=== PATIENT | female | born 1995 | race African-American/Black ===

== ENCOUNTER 2023-07-25 12:09 | Emergency (ER) | payer OTHER ==
[2023-07-25 12:58] LABS: BASOPHILS % (AUTO) 0.8 %; EOSINOPHILS # (AUTO) 0.1 10^3/uL (0.0-0.7); EOSINOPHILS % (AUTO) 1.4 %; HCT - HEMATOCRIT 40.6 % (37.0-47.0); HGB - HEMOGLOBIN 11.6 g/dL (12.0-16.0); LYMPHOCYTES # (AUTO) 1.3 10^3/uL (1.5-3.5); LYMPHOCYTES % (AUTO) 26.1 %; MEAN CORPUSCULAR HEMOGLOBIN 22.1 pg (27.0-31.0); MEAN CORPUSCULAR HGB CONC 28.6 g/dL (32.0-36.0); MEAN CORPUSCULAR VOLUME 77.2 fL (81.0-99.0); MEAN PLATELET VOLUME 11.2 fL (7.9-10.8); MONOCYTES # (AUTO) 0.5 10^3/uL (0.0-1.0); MONOCYTES % (AUTO) 10.4 %; NEUTROPHILS % (AUTO) 60.9 %; PLT - PLATELET COUNT 260 10^3/uL (130-450); RED BLOOD COUNT 5.26 10^6/uL (4.20-5.40); RED CELL DISTRIBUTION WIDTH 13.8 % (12.0-15.0)
[2023-07-25 13:02] LABS: SLIDE REVIEW? Indicated
[2023-07-25 13:12] LABS: ALBUMIN 4.6 g/dL (3.2-5.5); ALBUMIN/GLOBULIN RATIO 1.6 (1.0-2.2); ALKALINE PHOSPHATASE 50 IU/L (42-121); ALT ALANINE AMINOTRANSFERASE 16 IU/L (10-60); AST ASPARTATE AMINOTRANSFERASE 16 IU/L (10-42); BILIRUBIN,TOTAL 0.6 mg/dL (0.2-1.0); BUN - BLOOD UREA NITROGEN 17 mg/dL (6-20); CALCIUM 9.5 mg/dL (8.5-10.3); CARBON DIOXIDE - CO2 29 mmol/L (21-32); CHLORIDE 100 mmol/L (101-111); CREATININE 0.8 mg/dL (0.6-1.3); GFR - MDRD 104 (>89); GLUCOSE 164 mg/dL (74-104); LIPASE 31 U/L (11-82); POTASSIUM 3.7 mmol/L (3.5-4.5); SODIUM 135 mmol/L (135-145); TOTAL PROTEIN 7.5 g/dL (6.4-8.9)
[2023-07-25 13:18] LABS: TROPONIN I HIGH SENSITIVITY < 2.3 ng/L (2.3-14.8)
[2023-07-25 13:20] LABS: PLATELET ESTIMATE, MANUAL NORMAL (130-450,000) (NORMAL); PLATELET MORPHOLOGY NORMAL APPEARANCE (NORMAL); RBC MORPHOLOGY (MULTIPLE) NORMAL APPEARANCE (NORMAL)
--- NOTE | 2023-07-25 13:30 | XRAY Report ---
PROCEDURE: Chest 1V INDICATIONS: Chest pain TECHNIQUE: One view of the chest was acquired. COMPARISON: None. FINDINGS: Surgical changes and devices: None. Lungs and pleura: No dense consolidation or pleural effusion. Mediastinum: Normal heart size Bones and chest wall: No suspicious bony lesions. Overlying soft tissues appear unremarkable. IMPRESSION: No acute radiographic abnormality on this single view study. Reviewed by: Lito Sweeney MD on 07/25/2023 1:28 PM PDT Approved by: Lito Sweeney MD on 07/25/2023 1:28 PM PDT Station ID: [id number]
--- NOTE | 2023-07-25 13:45 | ED Physician Documentation ---
PD HPI CHEST PAIN - Stated complaint Stated Complaint: CP/NAUSEA/HEAD PX - Chief complaint Chief Complaint: Cardiac - Additional information Additional information: 27-year-old female with no pertinent past medical history presents emergency department for midepigastric pain. Patient said this started about 11 days ago she noticed that it gets significantly more worse at nighttime when she sleeping or laying down flat and gets somewhat better throughout the day. Patient also says that sometimes she has been noticing some intermittent difficulty breathing with over physical exertion but she also says that she is more stuffy the last few days with congestion, rhinorrhea. She said no fevers or chills no nausea or vomiting. Patient says that she does have a history of acid reflux is not taking any medications for this and says that this does feel very similar to acid reflux in the past. 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 : None HEENT: None Musculoskeletal: None Derm: None - Past Surgical History Past Surgical History: No - Present Medications Home Medications: Ambulatory Orders Medication Instructions Recorded Confirmed Famotidine [Acid-Pep] 20 mg PO DAILY #20 tablet 07/25/23 - Allergies Allergies/Adverse Reactions: Allergies Allergy/AdvReac Type Severity Reaction Status Date / Time No Known Drug Allergies Allergy Verified 07/25/23 12:24 - Social History Does the pt smoke?: No Smoking Status: Never smoker Does the pt drink ETOH?: Yes Does the pt have substance abuse?: No - Immunizations Immunizations are current?: Yes PD ED PE NORMAL - Vitals Vital signs reviewed: Yes - General General: Alert and oriented X 3, No acute distress, Well developed/nourished - HEENT HEENT: Atraumatic - Neck Neck: Supple, no meningeal sign - Cardiac Cardiac: RRR, No murmur, No gallop, Strong equal pulses - Respiratory Respiratory: No respiratory distress, Clear bilaterally - Abdomen Abdomen: Normal bowel sounds, Soft, Non tender, No organomegaly - Extremities Extremities: No edema - Neuro Neuro: Alert and oriented X 3, music library assistant 2-12 intact, No motor deficit, No sensory deficit, Normal speech - Psych Psych: Normal mood, Normal affect Results - Vitals Vitals: Vital Signs - 24 hr 07/25/23 07/25/23 12:26 14:33 Temperature 36.5 C Heart Rate 65 56 L Respiratory 18 18 Rate Blood Pressure 127/80 128/86 H O2 Saturation 100 99 Oxygen O2 Source Room air - EKG (time done) 1236 EKG releavant findings:: EKG personally interpreted by author of this note. Relevant findings are: Rate: Rate (enter#) (59) Rhythm: NSR [place]: Normal Intervals: Normal [place] QRS: Normal Ischemia: Normal ST segments Computer interpretation: Agree with computer - Labs Labs: Laboratory Tests 07/25/23 07/25/23 12:53 12:53 WBC 5.0 RBC 5.26 Hgb 11.6 L Hct 40.6 MCV 77.2 L MCH 22.1 L MCHC 28.6 L RDW 13.8 Plt Count 260 MPV 11.2 H Neut # (Auto) 3.0 Lymph # (Auto) 1.3 L [place] # (Auto) 0.5 Eos # (Auto) 0.1 Baso # (Auto) 0.0 Absolute Nucleated RBC 0.00 Nucleated RBC % 0.0 Manual Slide Review Indicated Platelet Estimate NORMAL (130-450,000) Platelet Morphology NORMAL APPEARANCE RBC Morph Micro Appear NORMAL APPEARANCE Sodium 135 Potassium 3.7 Chloride 100 L Carbon Dioxide 29 Anion Gap 6.0 BUN 17 Creatinine 0.8 Estimated GFR (MDRD) 104 Glucose 164 H Calcium 9.5 Total Bilirubin 0.6 AST 16 ALT 16 Alkaline Phosphatase 50 Troponin I High Sens < 2.3 L Total Protein 7.5 Albumin 4.6 Globulin 2.9 Albumin/Globulin Ratio 1.6 Lipase 31 - Rads (name of study) Chest x-ray Relevant Findings:: Final report received, EMP independent interpretation of test, Other (No acute cardiopulmonary abnormalities) PD Medical Decision Making - ED course ED course: 27 yo female here for mid-epigastric pain. Exam without evidence of volume overload so doubt heart failure. EKG without signs of active ischemia. Given the timing of pain to ER presentation, single troponin was negative so doubt NSTEMI. Presentation not consistent with acute PE (PERC negative),pneumothorax (not visualized on chest xr), thoracic aortic dissection, pericarditis, tamponade, pneumonia (no infectious symptoms, clear chest xr), myocarditis (no recent illness, neg trop). HEART score:0, so plan to discharge patient home with PCO follow up and famotidine prescription for presumed Acid reflux. Departure - Departure Disposition: Home, Self Care Clinical Impression: GERD (gastroesophageal reflux disease) Qualifiers: Esophagitis presence: without esophagitis Qualified Code(s): K21.9 - Gastro- esophageal reflux disease without esophagitis Instructions: Antacids, ED GERD Prescriptions: Famotidine [Acid-Pep] 20 mg PO DAILY #20 tablet Comments: Thank you for trusting us with your care. As we discussed I believe that your symptoms are due to acid reflux. We have completed an EKG, labs, chest x-ray and all are not showing anything emergent concerning for possible heart attack. We have given you a GI cocktail here to see if this would help with your midepigastric pain as well as started you on an antacid medication called famotidine. If you are noticing some alleviation with the symptoms I would strongly encourage you to follow-up with your primary care provider for refill. Your labs do reveal some possible mild anemia this is something you can have worked up by your primary care provider for further evaluation nothing emergent needs to be done on our end for this. Please come back to the emergency department for chest pain is getting any worse despite the acid reducing methods we discussed or any other concerning symptoms. Forms: PCP List Discharge Date/Time: 07/25/23 14:33
[2023-07-25] MEDS: MAG HYDROX/AL HYDROX/SIMETH 30 ML UDC PO STA (14:22)
[2023-07-25] MEDS: FAMOTIDINE 20 MG TABLET PO STA (14:22)
[2023-07-25] MEDS: LIDOCAINE VISCOUS 2% 15 ML ORAL SYRINGE MM STA (14:22)
[2023-07-25 14:41] VITALS: BP 128/86; O2SAT 99
== END 2023-07-25 14:33 | disposition home or self-care (01) ==
LOC: ED 12:09 → SUPCPDRO 12:09 → ED 14:33
DX: K21.9 Gastro-esophageal reflux disease without esophagitis (principal)
CPT/HCPCS: 36415; 71045; 80053; 83690; 84484; 85025; 93005; 99284; A9270

== ENCOUNTER 2023-11-27 13:18 | Day surgery (SDC) | payer OTHER ==
--- NOTE | 2023-11-27 14:19 | XRAY Report ---
PROCEDURE: Tib/Fib RT INDICATIONS: Trauma TECHNIQUE: 2 views of the tibia and fibula were acquired. COMPARISON: None. FINDINGS: Bones: Nondisplaced, transverse fracture of the tibia midshaft No suspicious bony lesions. Soft tissues: No suspicious soft tissue calcifications or masses. IMPRESSION: Nondisplaced mid tibia fracture. Reviewed by: Valerie Rosenthal MD, PhD on 11/27/2023 2:18 PM PDT Approved by: Valerie Rosenthal MD, PhD on 11/27/2023 2:18 PM PDT Station ID: [id number]
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
[2023-11-27 16:29] LABS: BASOPHILS % (AUTO) 0.3 %; EOSINOPHILS % (AUTO) 0.2 %; HCT - HEMATOCRIT 33.6 % (37.0-47.0); HGB - HEMOGLOBIN 10.1 g/dL (12.0-16.0); LYMPHOCYTES # (AUTO) 1.7 10^3/uL (1.5-3.5); LYMPHOCYTES % (AUTO) 29.4 %; MEAN CORPUSCULAR HEMOGLOBIN 22.5 pg (27.0-31.0); MEAN CORPUSCULAR HGB CONC 30.1 g/dL (32.0-36.0); MEAN PLATELET VOLUME 11.2 fL (7.9-10.8); MONOCYTES # (AUTO) 0.5 10^3/uL (0.0-1.0); MONOCYTES % (AUTO) 8.9 %; NEUTROPHILS # (AUTO) 3.5 10^3/uL (1.5-6.6); NEUTROPHILS % (AUTO) 60.5 %; PLT - PLATELET COUNT 281 10^3/uL (130-450); RED BLOOD COUNT 4.48 10^6/uL (4.20-5.40); RED CELL DISTRIBUTION WIDTH 13.6 % (12.0-15.0); WHITE BLOOD COUNT 5.8 x10^3/uL (4.8-10.8)
[2023-11-27] MEDS: HYDROmorphone 1 MG/ML CARPUJECT IVP STA ×2 (16:30→17:29)
[2023-11-27 16:46] LABS: ALBUMIN/GLOBULIN RATIO 1.3 (1.0-2.2); ALKALINE PHOSPHATASE 35 IU/L (42-121); ALT ALANINE AMINOTRANSFERASE 14 IU/L (10-60); AST ASPARTATE AMINOTRANSFERASE 19 IU/L (10-42); BILIRUBIN,TOTAL 0.6 mg/dL (0.2-1.0); BUN - BLOOD UREA NITROGEN 15 mg/dL (6-20); CALCIUM 9.3 mg/dL (8.5-10.3); CARBON DIOXIDE - CO2 25 mmol/L (21-32); CHLORIDE 104 mmol/L (101-111); CREATININE 0.7 mg/dL (0.6-1.3); GFR - MDRD 121 (>89); GLUCOSE 143 mg/dL (74-104); POTASSIUM 3.6 mmol/L (3.5-4.5); SODIUM 137 mmol/L (135-145); TOTAL PROTEIN 7.2 g/dL (6.4-8.9)
[2023-11-27 16:51] LABS: HCG,QUALITATIVE BLOOD NEGATIVE
[2023-11-27] MEDS: oxyCODONE 5 MG TABLET PO STA (16:51)
[2023-11-27] MEDS: ceFAZolin 2 GM VIAL IVP STA (16:57)
[2023-11-27 17:14] LABS: INR 1.3 (0.8-1.2); PT - PROTHROMBIN TIME 13.7 secs (9.9-12.6)
[2023-11-27] MEDS: KETOROLAC 15 MG/ML VIAL IVP STA (17:29)
--- NOTE | 2023-11-27 18:46 | ANESTHESIA ---
Pre-Anesthesia VS, & Labs - Diagnosis right lower leg injury - Procedure washout of right lower leg injury Vital Signs: Temp Pulse Resp BP Pulse Ox O2 Flow Rate 36.5 C 51 L 16 127/94 H 100 11/27/23 13:26 11/27/23 18:00 11/27/23 18:00 11/27/23 18:00 11/27/23 18:00 Height: 5 ft 7 in Weight (kg): 61.235 kg Body Mass Index: 21.1 BMI Classification: Normal - NPO Last Fluid Intake: 1600 Last Food Intake: >8hours - Is Patient ?: No (pt denies ; in a same sex marriage; declines upt; will sign a waiver) - Lab Results Current Lab Results: Laboratory Tests 11/27/23 16:26: PT 13.7 H, INR 1.3 H 11/27/23 16:26: WBC 5.8, RBC 4.48, Hgb 10.1 L, Hct 33.6 L, MCV 75.0 L, MCH 22.5 L, MCHC 30.1 L, RDW 13.6, Plt Count 281, MPV 11.2 H, Neut # (Auto) 3.5, Lymph # (Auto) 1.7, [place] # (Auto) 0.5, Eos # (Auto) 0.0, Baso # (Auto) 0.0, Absolute Nucleated RBC 0.00, Nucleated RBC % 0.0 11/27/23 16:26: Sodium 137, Potassium 3.6, Chloride 104, Carbon Dioxide 25, Anion Gap 8.0, BUN 15, Creatinine 0.7, Estimated GFR (MDRD) 121, Glucose 143 H, Calcium 9.3, Total Bilirubin 0.6, AST 19, ALT 14, Alkaline Phosphatase 35 L, Total Protein 7.2, Albumin 4.0, Globulin 3.2, Albumin/Globulin Ratio 1.3, Serum HCG, Qual NEGATIVE Lab results reviewed: Yes Fish Bones: 11/27/23 16:26 11/27/23 16:26 Home Medications and Allergies Allergies/Adverse Reactions: Allergies Allergy/AdvReac Type Severity Reaction Status Date / Time No Known Drug Allergies Allergy Verified 11/27/23 13:37 Anes History & Medical History - Anesthetic History Anesthesia Complications: reports: No previous complications (no previous anesthetics) Family history of Anesthesia Complications: Denies - Medical History Cardiovascular: reports: None Pulmonary: reports: None Gastrointestinal: reports: GERD (takes medication, reports it is well cont rolled, does not currently have reflux; does not need to sleep elevated on pillows) Urinary: reports: None Neuro: reports: None, Migraines Musculoskeletal: reports: None Endocrine/Autoimmune: reports: None Blood Disorders: reports: Anemia Skin: reports: None Smoking Status: Never smoker Psychosocial: reports: No issues indicated Exam General: Alert, Cooperative Dental: WNL Mouth Openin Fingerbreadth Neck Mobility: Normal Mallampati classification: II Thyromental Distance: 4-6 cm Respiratory: Lungs clear Cardiovascular: Regular rate Plan Anesthesia Type: General Consent for Procedure(s) Verified and Reviewed: Yes Code Status: Attempt Resuscitation ASA classification: 2-Mild systemic disease Is this case an emergency?: Yes
[2023-11-27] MEDS ORDERED: ePHEDrine 50 MG/ML VIAL IVP PRN (18:47)
[2023-11-27] MEDS ORDERED: fentaNYL 100 MCG/2 ML VIAL IVP PRN (18:47)
[2023-11-27] MEDS ORDERED: NALOXONE 0.4 MG/ML VIAL IVP PRN (18:47)
[2023-11-27] MEDS ORDERED: ONDANSETRON 4 MG/2 ML VIAL IVP PRN ×2 (18:47→20:32)
[2023-11-27] MEDS ORDERED: ATROPINE ABBOJECT 1 MG/10 ML SYRINGE IVP PRN (18:47)
[2023-11-27] MEDS ORDERED: METOCLOPRAMIDE 10 MG/2 ML VIAL IVP PRN (18:47)
[2023-11-27] MEDS ORDERED: MORPHINE 2 MG/ML CARPUJECT IVP PRN (18:47)
[2023-11-27] MEDS ORDERED: HYDROmorphone 0.5 MG/0.5 ML SYRINGE IVP PRN (18:47)
[2023-11-27] MEDS ORDERED: LACTATED RINGERS 1,000 ML IV SCH (19:00)
[2023-11-27] MEDS ORDERED: fentaNYL 100 MCG/2 ML VIAL ONE (19:12)
[2023-11-27] MEDS ORDERED: PROPOFOL 200 MG/20 ML VIAL IVP ONE (19:12)
[2023-11-27] MEDS ORDERED: LIDOCAINE-PF 2% 10 ML AMP SUBQ ONE (19:12)
[2023-11-27] MEDS ORDERED: MIDAZOLAM 2 MG/2 ML VIAL ONE (19:12)
[2023-11-27] MEDS ORDERED: BUPIVACAINE 0.5%-EPI 1:200000 PF 10 ML VIAL ONE (19:48)
[2023-11-27] MEDS: BUPIVACAINE 0.5%-EPI 1:200000 PF 30 ML VIAL SUBQ ONE ×2 (19:59)
[2023-11-27] MEDS: LACTATED RINGERS 1,000 ML IV ONE (20:25)
[2023-11-27] MEDS ORDERED: ONDANSETRON 4 MG/2 ML VIAL ONE (20:27)
[2023-11-27] MEDS ORDERED: DEXAMETHASONE 4 MG/ML VIAL ONE (20:27)
[2023-11-27] MEDS ORDERED: HYDROcod/ACETAM 10 MG/325 MG TABLET PO PRN (20:32)
[2023-11-27] MEDS ORDERED: oxyCODONE 5 MG TABLET PO PRN (20:32)
--- NOTE | 2023-11-27 20:49 | OPERATIVE REPORT ---
Operative Report - General Procedure Date: 11/27/23 Planned Procedure: Irrigation and debridement of open right midshaft tibia fracture Pre-Op Diagnosis: Grade 1 open right midshaft tibia fracture Procedure Performed: Irrigation and debridement of grade 1 open right midshaft tibia fracture Post Op Diagnosis: Same - Procedure Note Primary Surgeon: Margi Cintron MD Anesthesia Provider: Elham Arreola CRNA Anesthesia Technique: General LMA IV Fluids (mL): 600 Estimated Blood Loss (mL): 10 Complications: None - Other Other Information/Narrative: Description of procedure: Patient was taken the operating room from the emergency room where she was placed under general anesthetic in the supine position. We then scrubbed the wound with Betadine solution and scrub brush. We then prepped and draped the leg free in usual fashion. We then sharply did incised the wound edges with a #15 blade and pickups. We then copiously irrigated the wound with a total of 2000 mL of normal saline. We probed the wound and found no direct communication to the tibia fracture. The periosteum of the exposed tibia shaft appeared to be intact. We then closed the wound loosely with interrupted horizontal mattress stitches of 3-0 nylon. We then washed the wound and dressed it with Xeroform gauze 4 x 4's Kerlix and sterile Webril. Patient was then placed in a long-leg posterior fiberglass splint. Patient then transported from the operating room to recovery room in satisfactory condition. Estimated blood loss: 10 mL Replacement: 600 mL crystalloid Plan: Patient be discharged home recovered. Will give an prescription for oxycodone for pain medication and a 7-day course of Keflex 500 mg p.o. 4 times daily. Will follow-up in orthopedic clinic in about 5 to 7 days for wound check and probably an application of a short long-leg cast.
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
[2023-11-27 22:37] VITALS: BP 137/94; O2SAT 98
[2023-11-27] MEDS: HYDROcod/ACETAM 5/325 MG TABLET PO PRN (22:46)
== END 2023-11-27 23:32 | disposition home or self-care (01) ==
LOC: ED 13:18 → SDS 19:20 → ICU 20:37 → SDS 23:32
PROVIDERS: ATTEND Orthopaedic Surgery
PROC: 0JQN0ZZ Repair Right Lower Leg Subcutaneous Tissue and Fascia, Open Approach (ICD-10-PCS; principal; 2023-11-27 19:00)
DX: S82.291B Other fracture of shaft of right tibia, initial encounter for open fracture type I or II (principal); W22.8XXA Striking against or struck by other objects, initial encounter
CPT/HCPCS: 12034; 36415; 73590; 80053; 84703; 85025; 85610; 96374; 96375; 96376; 99285; A9270; J1170; J7120

== ENCOUNTER 2023-12-13 09:11 | Outpatient (CLI) | payer OTHER ==
--- NOTE | 2023-12-13 11:58 | XRAY Report ---
PROCEDURE: Tib/Fib RT INDICATIONS: NONDISPLACED TRANSVERSE FX OF SHAFT OF R TIBIA TECHNIQUE: 2 views of the tibia and fibula were acquired. COMPARISON: Tib-fib radiograph on November 27, 2023. FINDINGS: Bones: Nondisplaced transverse fracture of the mid tibial diaphysis appears slightly less conspicuou s compared to prior exam. Stable alignment. No suspicious bony lesions. Soft tissues: No suspicious soft tissue calcifications or masses. IMPRESSION: Nondisplaced transverse fracture of the mid tibial diaphysis demonstrates slight interval osseous hea ling. Stable alignment. Reviewed by: Steven Pan MD on 12/13/2023 11:56 AM PDT Approved by: Steven Pan MD on 12/13/2023 11:56 AM PDT Station ID: [id number]
== END 2023-12-13 09:12 | disposition home or self-care (01) ==
LOC: DI 09:11
PROVIDERS: ATTEND Orthopaedic Surgery
DX: S82.22 Transverse fracture of shaft of tibia (principal)

== ENCOUNTER 2024-01-11 08:55 | Outpatient (CLI) | payer OTHER ==
--- NOTE | 2024-01-11 09:28 | XRAY Report ---
PROCEDURE: Tib/Fib RT INDICATIONS: NONDISPLACED TRANSVERSE FX OF SHAFT R TIBIA TECHNIQUE: 2 views of the tibia and fibula were acquired. COMPARISON: None. FINDINGS: Bones: There is a comminuted nondisplaced fracture involving the mid diaphysis of the patient's righ t tibia. No other fractures or dislocations are seen. No significant degenerative changes are present . Soft tissues: No suspicious soft tissue calcifications or masses. IMPRESSION: Comminuted nondisplaced fracture involving the midshaft of the right tibial diaphysis. Reviewed by: Raj Pandey MD on 01/11/2024 9:27 AM PDT Approved by: Raj Pandey MD on 01/11/2024 9:27 AM PDT Station ID: [id number]
== END 2024-01-11 08:56 | disposition home or self-care (01) ==
LOC: DI 08:55
PROVIDERS: ATTEND Orthopaedic Surgery
DX: S82.22 Transverse fracture of shaft of tibia (principal)